=== PATIENT | male | born 1990 | race Caucasian/White ===

== ENCOUNTER 2017-02-19 10:43 | Day surgery (SDC) | payer OTHER ==
--- NOTE | 2017-02-19 11:18 | ED ---
Abdominal Pain/Male - HPI Summary HPI Summary: 26M presents with RLQ pain for 24 hours. She states that it is a tight feeling in his abdomen on the right side. He admits to nausea and diarrhea. He denies any fever. He denies any dysuria. His last meal was 5 hours ago with a smoothie. He admits to anorexia. He states his pain is worst with movement. He denies any vomiting. He denies eating anything different. He has not taken anything for pain. pain is 3/10 without movement. He denies any testicular pain. - History of Current Complaint Chief Complaint: EDAbdPain Stated Complaint: RT ABD PAIN Time Seen by Provider: 02/19/17 11:00 Pain Intensity: 2 - Allergies/Home Medications Allergies/Adverse Reactions: Allergies Allergy/AdvReac Type Severity Reaction Status Date / Time No Known Allergies Allergy Verified 02/19/17 10:49 PMH/Surg Hx/FS Hx/Imm Hx Endocrine/Hematology History: Denies: Hx Anticoagulant Therapy Cardiovascular History: Denies: Hx Hypertension Infectious Disease History: No Infectious Disease History: Denies: Traveled Outside the [place] in Last 30 Days - Family History Known Family History: Negative: Cardiac Disease - Social History Alcohol Use: Weekly Substance Use Type: Reports: None Smoking Status (MU): Never Smoked Tobacco Review of Systems Negative: Fever Negative: Chest Pain Negative: Shortness Of Breath Positive: Abdominal Pain, Nausea. Negative: Vomiting, Diarrhea All Other Systems Reviewed And Are Negative: Yes Physical Exam Triage Information Reviewed: Yes Vital Signs On Initial Exam: Initial Vitals Temp Pulse Resp BP Pulse Ox 97.1 F 71 16 128/69 100 02/19/17 10:44 02/19/17 10:44 02/19/17 10:44 02/19/17 10:44 02/19/17 10:44 Vital Signs Reviewed: Yes Appearance: Positive: Well-Appearing Skin: Positive: Warm, Dry Head/Face: Positive: Normal Head/Face Inspection Eyes: Positive: Normal, EOMI, HERNANDEZ, Conjunctiva Clear ENT: Positive: Normal ENT inspection, Pharynx normal, TMs normal Respiratory/Lung Sounds: Positive: Clear to Auscultation, Breath Sounds Present Cardiovascular: Positive: Normal, RRR Abdomen Description: Positive: Soft, Other: - tenderness in RLQ, pos obturator Bowel Sounds: Positive: Present - Rosebud Coma Scale Coma Scale Total: 15 Diagnostics - Vital Signs Vital Signs Temp Pulse Resp BP Pulse Ox 02/19/17 10:44 97.1 F 71 16 128/69 100 - Laboratory Result Diagrams: 02/19/17 11:20 02/19/17 11:20 Lab Statement: Any lab studies that have been ordered have been reviewed, and results considered in the medical decision making process. - CT abd CT Interpretation: Positive (See Comments) - IMPRESSION: CT FINDINGS OF NONCOMPLICATED ACUTE APPENDICITIS CT Interpretation Completed By: Radiologist Abdominal Pain Fem Course/Dx - Course Course Of Treatment: 26M presents with RLQ pain for 24 hours. She states that it is a tight feeling in his abdomen on the right side. He admits to nausea and diarrhea. He denies any fever. He denies any dysuria. His last meal was 5 hours ago with a smoothie. He admits to anorexia. He states his pain is worst with movement. He denies any vomiting. He denies eating anything different. He has not taken anything for pain. pain is 3/10 without movement. on exam tenderness LLQ. labs wbc 12.9. CT abd appenditis. dr lott already saw patient and will take to OR. - Diagnoses Differential Diagnosis/HQI/PQRI: Appendicitis, Testicular Torsion, Urinary Tract Infection Provider Diagnoses: Appendicitis - Provider Notifications Discussed Care Of Patient With: dr lott Time Discussed With Above Provider: 13:55 - will take to OR Discharge - Discharge Plan Condition: Stable Disposition: ADMITTED TO [facility] Referrals: [facility] - Franklyn RIVERA [Primary Care Provider] -
[2017-02-19] MEDS ORDERED: NS 0.9% 1000 ML* 1,000 ML IV ONE (11:20)
[2017-02-19 11:39] LABS: Hematocrit 39 % (42-52); Hemoglobin 13.5 g/dl (14.0-18.0); Mean Corpuscular HGB Conc 35 g/dl (31-36); Mean Corpuscular Hemoglobin 31 pg (27-31); Mean Corpuscular Volume 91 fL (80-94); Mean Platelet Volume 8 um3 (7.4-10.4); Red Cell Distribution Width 13 % (10.5-15); White Blood Count 12.7 10^3/ul (3.5-10.8)
[2017-02-19 11:43] LABS: Urine Bilirubin Negative (Negative); Urine Glucose Negative (Negative); Urine Nitrite Negative (Negative)
[2017-02-19 11:50] LABS: ALT 15 U/L (7-52); AST 19 U/L (13-39); Albumin 4.9 g/dL (3.2-5.2); Alkaline Phosphatase 47 U/L (34-104); Anion Gap 11 mmol/L (2-11); BUN/Creatinine Ratio 12.8 (8-20); Blood Urea Nitrogen 12 mg/dL (6-24); CO2 Carbon Dioxide 21 mmol/L (22-32); Calcium 9.6 mg/dL (8.6-10.3); Chloride 102 mmol/L (101-111); EGFR African American 124.8 (>60); Globulin 2.6 g/dL (2-4); Glucose 116 mg/dL (70-100); Lipase < 10 U/L (11.0-82.0); Potassium 3.8 mmol/L (3.5-5.0); Sodium 134 mmol/L (133-145); Total Protein 7.5 g/dL (6.4-8.9)
[2017-02-19] MEDS ORDERED: Iohexol 300* (CONTRAST) 10 ML SDV IV ONE (13:08)
--- NOTE | 2017-02-19 13:43 | RAD ---
INDICATION: Right lower quadrant pain COMPARISON: None TECHNIQUE: Axial source images were obtained from the hemidiaphragms to the symphysis pubis following administration of oral and intravenous contrast. 100 mL Omnipaque 300 was utilized. Coronal and sagittal reconstructed images were acquired. Lung bases: The lung bases are clear. Liver: The liver is normal in size. There are no masses. There is no ductal dilatation. Gallbladder: There are no calcified gallstones. There is no evidence of wall thickening or pericholecystic fluid. Spleen: The spleen is normal in size. There are no masses. Pancreas: There is no focal pancreatic mass or ductal dilatation. Adrenal glands: There is no evidence of adrenal mass. Kidneys: The kidneys are normal in size and position. There are prompt nephrograms and there is prompt excretion bilaterally. There are no renal parenchymal masses. There is no evidence of nephrolithiasis. Adenopathy: There is no evidence of adenopathy by size criteria. Fluid collections: There are no free or localized fluid collections. Vessels:There are no significant atherosclerotic changes involving the aorta. There is no focal aneurysm. The iliac vessels are normal in caliber. The IVC appears normal. GI tract: The appendix is fluid-filled and mildly dilated. There is mild hyperemia with mild periappendiceal inflammatory change. The CT findings are compatible with acute appendicitis. There are no findings of obstruction or perforation. The upper GI tract is normal. Pelvic organs: The prostate and seminal vesicles appear normal Bladder: There are no bladder masses. Abdominal and pelvic soft tissues: The extraperitoneal abdominal and pelvic soft tissues appear normal.. Osseous structures: There are no acute osseous findings. Other: None IMPRESSION: CT FINDINGS OF NONCOMPLICATED ACUTE APPENDICITIS
[2017-02-19] MEDS ORDERED: Bupivacaine 0.25% SDV* 30 ML ONE (14:13)
[2017-02-19] MEDS ORDERED: Succinylcholine* 20 MG/ML 10 ML VIAL ONE (14:41)
[2017-02-19] MEDS ORDERED: ceFAZolin 2 GM PREMIX (*) 50 ML IVPB ONE (14:43)
[2017-02-19] MEDS ORDERED: Bacitracin OINTMENT* 1 TUBE ONE (15:33)
--- NOTE | 2017-02-19 15:40 | SURGPN ---
Brief Operative Note - Surgery Procedures: Pre-OP Diagnoses: acute appendicitis Post-op Diagnosis: same Procedure: Laparoscopic appendectomy Surgeon: Hoang Asst: none Anethesia: JENNYA EBL: minimal IVF: crystalloid Specimen: appendix Drains: none
--- NOTE | 2017-02-19 15:52 | HP ---
CC: [facility]; [facility] HISTORY AND PHYSICAL: DATE OF ADMISSION: 02/19/17 The patient is seen in the emergency room on 02/19/17. HISTORY OF PRESENT ILLNESS: Mr. Eagle is a 26-year-old gentleman who presented to [facility] Emergency Room with a 1-day history of abdominal pain. The patient describes onset of pain last night mostly in the central abdomen and lower abdomen. He had some relief of the pain and went to bed, only to be woken up with similar pain this morning. Pa in has moved towards the right lower quadrant. It has been accompanied with nausea but no vomiting. The patient has decreased appetite. He is passing flatus. He denies any vomiting, denies any feve rs or chills, or any pervious similar symptoms. PAST MEDICAL HISTORY: None. PAST SURGICAL HISTORY: None. MEDICATIONS: None. ALLERGIES: None. FAMILY HISTORY: Noncontributory with no history of ulcerative colitis or Crohn's disease. SOCIAL HISTORY: He does not smoke, he drinks occasionally. He is a [employer] student at [employer] and live s with his . REVIEW OF SYSTEMS: No headaches. No fevers or chills. No visual disturbances. No cardiovascular d isease or cerebrovascular disease. No shortness of breath. Abdominal complaints as described. No d ysuria. Good exercise tolerance. No bleeding or clotting disorders. No metabolic derangement. No psychiatric illnesses. PHYSICAL EXAMINATION GENERAL: He is alert and oriented x3, in no apparent distress. VITAL SIGNS: Afebrile. Vital signs are stable. BMI is 23. HEENT: Normocephalic, atraumatic. Sclerae anicteric. Mucous membranes are moist. NECK: No lymphadenopathy. LUNGS: Clear. ABDOMEN: Soft, nondistended. Tender in the right upper quadrant at McBurney's point. The patient also has a positive Rovsing sign. He has no rebound tenderness. No masses or hernias are noted. N egative psoas sign. No CVA tenderness. EXTREMITIES: Within normal limits. RECTAL: Exam not performed. DIAGNOSTIC STUDIES/LAB DATA: The patient had labs, which showed a white count 12.7 with no left sh ift. Chemistry panel, which showed a mildly elevated bilirubin and an elevated CRP of 22.5, referen ce range is less than 1. Urinalysis within normal limits. The patient underwent a CAT scan of the abdomen and pelvis. Report is suggestive of acute appendici tis. I have not reviewed these images yet, but I did examine the patient prior to the CT scan and f elt strongly that he had acute appendicitis. RECOMMENDATIONS: I did recommend a laparoscopic appendectomy to him, going over the risks, benefits and alternatives to this procedure. He wished to proceed. We spoke of the possible complications, which include, but are not limited to bleeding, infection, bowel injury, bladder injury, need for a dditional procedures, abscess formation, and possibility of open procedure. The patient agrees and consent signed. He will receive preoperative antibiotics. We will look towards possibly getting hi m home today, if this is an early acute appendicitis. After I did discuss the likely diagnosis with the patient, he wanted to proceed with CAT scan. We d id speak of this as part of our workup and this was performed and these images will ultimately be re viewed prior to the patient going to the OR. [id number]/[facility] #: [id number]
[2017-02-19] MEDS ORDERED: DiMENhydriNATE IV* 50 MG/ML VIAL IV PUSH PRN (15:55)
[2017-02-19] MEDS ORDERED: HYDROmorphone INJ* 1 MG/ML CARPUJECT SYRINGE IV PRN (15:55)
[2017-02-19] MEDS ORDERED: fentaNYL* 50 MCG/ML 2 ML VIAL (100 MCG VIAL) IV PRN (15:55)
[2017-02-19 17:00] VITALS: BP 121/64
--- NOTE | 2017-02-19 23:56 | OP ---
CC: [facility]; [facility] OPERATIVE REPORT: DATE OF OPERATION: DATE OF : [birth year] SURGEON: Kodi Bolton MD CUBING MACHINE TENDER: None. ANESTHESIOLOGIST: Dr. Verma. ANESTHESIA: General. PRE-OP DIAGNOSIS: Acute appendicitis. POST-OP DIAGNOSIS: Acute appendicitis. OPERATIVE PROCEDURE: Laparoscopic appendectomy. ESTIMATED BLOOD LOSS: Minimal blood loss. FLUIDS: Minimal crystalloid fluid given. SPECIMEN: Appendix, non-perforated. DRAINS: None. COUNTS: Lap pad count and instrument count correct at the end of the procedure. DESCRIPTION OF PROCEDURE: The patient was identified in the preoperative area, marked, consent sign ed. Case had been discussed with him already and again it was revisited. The patient was brought t o the operating room, placed on the operating table in a supine position. Preoperative antibiotics were given. Sequential devices were placed on bilateral lower extremities and general anesthesia wa s induced. The patient's abdomen was clipped of hair and prepped and draped in a standard surgical fashion and a time-out was performed. Folds of the umbilicus were elevated anteriorly and a Veress needle was inserted into the abdominal cavity, which was then allowed to insufflate to a pressure of 15 mmHg. The patient tolerated the in sufflation well. An incision was made over this Veress needle, which was then removed and a 5 mm tr ocar was inserted. Laparoscope was inserted through this and there was no evidence of injury from t he trocar insertion or from the Veress needle. The bowel appeared intact with no evidence of bleedi ng. The omentum was already out of the field. Additional 5 mm trocar was then placed in the suprap ubic area and in the left lower quadrant. The table was repositioned and the indurated stiff inflam ed appendix was identified. It was non- perforated. This was grasped at the mesentry and with Liga Sure device, we were able to sharply dissect the lateral peritoneal attachment. This gave us opport unity to cut through the mesoappendix close to the appendix being careful not to violate any retrope ritoneal structures. We took this right up to the base of the appendix where there was healthy tiss ue and a 0 Polysorb Endoloop was utilized as a pursestring at the base of the appendix. Appendix wa s then cut, placed in an endoscopic retrievable bag. The mucosa was cauterized and the appendix was removed through the umbilical port site. It had to be minimally dilated to allow for the appendix to be removed. The abdomen was collapsed of air. The additional 2 trocars removed under direct vis ion and incision at the umbilicus was closed with a 4-0 chromic suture and the other 2 incisions wer e closed with 4-0 Monocryl subcuticular sutures. Sterile dressing was applied. The patient tolerat ed the procedure well, was woken up in the OR and transferred to PACU in stable condition. [id number]/[facility] #: [id number]
== END 2017-02-19 17:00 | disposition home or self-care (01) ==
LOC: ED 10:43 → OR 14:37
PROVIDERS: ATTEND Surgery
DX: K35.80 Unspecified acute appendicitis (principal); R10.31 Right lower quadrant pain; R11.0 Nausea; R19.7 Diarrhea, unspecified
CPT/HCPCS: 36415; 74177; 80053; 81003; 83690; 85025; 86141; 88304; 96374; 99282; A9270-GY; J0330; J0690; Q9967